=== PATIENT | female | born 1990 | race Two or more races ===

== ENCOUNTER 2022-04-01 19:16 | Emergency (ER) | payer OTHER ==
[~2022-04-01] VITALS: Ht 165.1 cm; Wt 113.4 kg
[2022-04-01] MEDS ORDERED: MATULANE50 MG (19:45)
[2022-04-01] MEDS ORDERED: TOPROL XL25 M1 (19:45)
[2022-04-01] MEDS ORDERED: HYDRODIURIL12.5 MG (19:45)
== END 2022-04-01 23:56 | disposition home or self-care (01) ==
LOC: ER 19:16
DX: I10 Essential (primary) hypertension (principal)